=== PATIENT | male | born 1950 | race African-American/Black ===

== ENCOUNTER 2023-07-15 21:38 | Emergency (ER) | payer OTHER ==
[~2023-07-15] VITALS: Ht 185.4 cm; Wt 126.4 kg
[~2023-07-15 21:38] MED LIST: ASPI-1198 PO; ATEN-72 PO; FLOMAX; INSU100C4; IRBE300T43 PO; SIMV-259 PO; TYL; [UNRECOGNIZED DRUG - OTHER]
[2023-07-15 22:00] VITALS: TEMP 98.2
[2023-07-15] MEDS ORDERED: CARV3 PO (22:02)
[2023-07-15 22:16] LABS: GLUCOMETER DEV NAME(LOC) ER.6; GLUCOSE,POINT OF CARE 285 MG/DL (70-110)
[2023-07-16 01:00] VITALS: BP 145/71; PULSE 81; RESP 17
== END 2023-07-16 02:39 | disposition home or self-care (01) ==
LOC: EMS 21:40
DX: S01.111A Laceration without foreign body of right eyelid and periocular area, initial encounter (principal); E11.9 Type 2 diabetes mellitus without complications; E78.00 Pure hypercholesterolemia, unspecified; I10 Essential (primary) hypertension; Z98.890 Other specified postprocedural states; W01.0XXA Fall on same level from slipping, tripping and stumbling without subsequent striking against object, initial encounter; Y93.89 Activity, other specified; Y92.89 Other specified places as the place of occurrence of the external cause; Y99.8 Other external cause status
CPT/HCPCS: 12013; 82962; 99282

== ENCOUNTER 2025-06-04 22:59 | Emergency (ER) | payer MEDICARE, OTHER ==
[~2025-06-04] VITALS: Ht 185.4 cm; Wt 104.5 kg
[~2025-06-04 22:59] MED LIST changes: -ATEN-72 PO; +CARV3 PO
[2025-06-04 23:07] VITALS: BP 135/59; PULSE 75; RESP 18; TEMP 97.9; O2SAT 98
[2025-06-04 23:55] LABS: APPEARANCE,URINE HAZY (CLEAR); GLUCOSE, URINE (UA) NEGATIVE (NEGATIVE); LEUKOCYTE ESTERASE ,URINE SMALL (NEGATIVE); NITRATE,URINE NEGATIVE (NEGATIVE); OCCULT BLOOD,URINE LARGE (NEGATIVE); SPECIFIC GRAVITIY, URINE 1.010 (1.003-1.030)
[2025-06-05 00:14] LABS: SQUAMOUS EPITHELIAL CELL,UR Rare /LPF (None Seen)
[2025-06-05 00:18] LABS: PLATELET COUNT (AUTO) 238 K/uL (150-450); RED BLOOD CELL COUNT(AUTO) 4.28 MIL/uL (4.50-5.90); RED CELL DISTRIBUTION WIDTH 14.6 % (11.5-14.5); WHITE BLOOD COUNT (AUTO) 8.2 K/uL (4.5-11.0)
[2025-06-05 00:37] LABS: CALCIUM, TOTAL 8.8 mg/dL (8.8-10.5); CREATININE 0.95 mg/dL (0.60-1.30); GLOMERULAR FILTR. RATE CALC > 60 mL/min (>60); GLUCOSE,RANDOM 138 mg/dL (70-110); SODIUM SERUM 135 mmol/L (136-145); UREA NITROGEN, BLOOD 18 mg/dL (7-18)
== END 2025-06-05 01:32 | disposition home or self-care (01) ==
LOC: EMS 22:59
DX: R31.9 Hematuria, unspecified (principal); K08.89 Other specified disorders of teeth and supporting structures; E11.9 Type 2 diabetes mellitus without complications; E78.00 Pure hypercholesterolemia, unspecified; I10 Essential (primary) hypertension; Z98.890 Other specified postprocedural states; Z79.899 Other long term (current) drug therapy
CPT/HCPCS: 80048; 81001; 85025; 99283